=== PATIENT | female | born 1990 ===

== ENCOUNTER 2021-03-04 22:51 | Emergency (ER) | payer MEDICAID, SELFPAY ==
[2021-03-04 23:40] VITALS: BP 129/75; PULSE 67; RESP 18; TEMP 36.2; O2SAT 98; BMI 36.2
[2021-03-05 00:28] LABS: Basophils Absolute Auto 0.1 X10*3/uL (0.0-0.2); Basophils Percent Auto 0.9 % (0-2); Eosinophils Percent Auto 0.1 % (0-4); Hematocrit 38.9 % (37-47); Hemoglobin 13.4 g/dl (12.0-16.0); Imm Gran Abs Auto 0.01 X10*3/uL (0.00-0.03); Imm Gran Pct Auto 0.1 % (0.0-0.4); Lymphocytes Absolute Auto 2.8 X10*3/uL (1.2-4.9); Lymphocytes Percent Auto 29.8 % (20-40); MANUAL DIFF FLAG NO; Mean Corpuscular HGB Conc 34.4 g/dl (31.0-35.0); Mean Corpuscular Hemoglobin 28.1 pg (27.0-33.0); Mean Corpuscular Volume 81.6 fL (80-98); Mean Platelet Volume 10.5 fL (9.4-12.3); Monocytes Absolute Auto 0.8 X10*3/uL (0.1-1.2); Monocytes Percent Auto 8.7 % (2-11); Neutrophils Absolute Auto 5.7 X10*3/uL (2.0-8.3); Neutrophils Percent Auto 60.4 % (45-73); Platelet Count 361 X10*3/uL (160-400); Red Blood Count 4.77 X10*6/uL (4.20-5.50); Red Cell Distribution Width 14.1 % (11.0-16.0); White Blood Count 9.4 X10*3/uL (4.8-10.8)
[2021-03-05 00:29] LABS: Glucose Urine UA NEG (NEG); Leukocyte Esterase Urine TRACE (NEG); Nitrite Urine NEG (NEG); Specific Gravity - Urine >= 1.030 (1.005-1.025); UACC Culture Trigger YES; Urine Blood TRACE (NEG); Urine Ketones >=80 MG/DL (NEG); Urine Protein 1+ MG/DL (NEG-TRACE)
[2021-03-05 00:31] LABS: Appearance Urine CLOUDY; Color Urine DARK YELLOW; UPreg QC Valid YES; Urine Pregnancy NEGATIVE (NEGATIVE)
[2021-03-05 00:38] LABS: Bacteria Urine 1+ /LPF; Mucus Urine TRACE /LPF; Squamous Epithelial Cell Urine 3+ /LPF
[2021-03-05 00:49] LABS: Anion Gap 16 (12-20); Blood Urea Nitrogen 12 mg/dL (9-16); Calcium 9.5 mg/dL (8.4-10.2); Carbon Dioxide 21 mmol/L (22-29); Chloride 106 mmol/L (96-108); Creatinine Clr Calc Pharmacy 121.5; Estimated Glomerular Filt Rate > 60; Glucose Random 86 mg/dL (60-115); Potassium 3.9 mmol/L (3.3-5.1); Sodium 139 mmol/L (135-145)
--- NOTE | 2021-03-05 02:03 | ED.HA ---
HPI - Headache General Chief Complaint: Headache Stated Complaint: Head pressure Time Seen by Provider: 03/05/21 02:02 Source: patient Mode of arrival: ambulatory History of Present Illness HPI Narrative: 30-year-old female with history of pseudotumor cerebri presents with feelings of head pressure without associated speech/auditory changes but does state that she had some very mild blurry vision that has completely resolved. Of note, patient states she no longer has any symptoms and further endorses that she is supposed to be on SCDs ovum I would that was prescribed by her neurologist through [facility], but she has sporadically been taking this medication. Related Data Previous Rx's Medication Instructions Recorded cephalexin 500 mg PO Q12H 3 Days #6 cap 03/05/21 Allergies Allergy/AdvReac Type Severity Reaction Status Date / Time aspirin Allergy Itching Verified 03/04/21 23:54 ibuprofen [From Motrin] Allergy Itching Verified 03/04/21 23:54 Review of Systems Review of Systems: Pertinent positives and negatives as stated in HPI and 10 point review of systems is otherwise negative. [facility] Past Medical History Source: nursing notes reviewed Social History Social History Patient : No Physical Exam Vital Signs: Vital Signs: Last Vital Signs Temp 97.2 F 03/04/21 23:40 Pulse 67 03/04/21 23:40 Resp 18 03/04/21 23:40 BP 129/75 03/04/21 23:40 Pulse Ox 98 03/04/21 23:40 Body Mass Index 36.2 VITAL SIGNS: Reviewed. GENERAL: Well developed, well nourished, in no acute distress. HEAD: Normocephalic/atraumatic EYES: PERRLA, EOMI intact without pain, no nystagmus EARS: Ext canals without abnormality OROPHARYNX: no oral lesions noted, posterior pharynx clear NECK: Supple, no adenopathy LUNGS: Normal breath sounds. No adventitious sounds or accessory muscle use. SpO2<98> CARDIOVASCULAR: Regular rate and rhythm without noted murmurs ABDOMEN: Soft, non-tender, non-distended with bowel sounds. SKIN: Inspection of the skin reveals no rashes NEUROLOGIC: Alert and oriented x 4. Strength and sensation to light touch were grossly intact x 4, no nystagmus, no facial droop, cranial nerves 2-12 grossly intact. Course Course Course Narrative: This is a 30-year-old female with history and clinical presentation consistent with head pressure and history of pseudotumor cerebri, but patient has had complete resolution of all of her initial presenting symptoms. She was strongly encouraged to continue with her prescribed medications for her condition and review of all investigations negative for any acute findings other than presence of UTI. Patient was informed of all results and discharged home in stable condition with instructions to follow-up with her neurologist in the next 2-3 days for re-evaluation further outpatient management. MDM - Headache Lab Data Result diagrams: 03/05/21 00:23 03/05/21 00:23 Labs: Lab Results 03/05/21 03/05/21 03/05/21 Range/Units 00:23 00:23 00:23 WBC 9.4 (4.8-10.8) X10*3/uL RBC 4.77 (4.20-5.50) X10*6/uL Hgb 13.4 (12.0-16.0) g/dl Hct 38.9 (37-47) % MCV 81.6 (80-98) fL MCH 28.1 (27.0-33.0) pg MCHC 34.4 (31.0-35.0) g/dl RDW 14.1 (11.0-16.0) % Plt Count 361 (160-400) X10*3/uL MPV 10.5 (9.4-12.3) fL Immature Gran % (Auto) 0.1 (0.0-0.4) % Neut % (Auto) 60.4 (45-73) % Lymph % (Auto) 29.8 (20-40) % [place] % (Auto) 8.7 (2-11) % Eos % (Auto) 0.1 (0-4) % Baso % (Auto) 0.9 (0-2) % Lymph # (Auto) 2.8 (1.2-4.9) X10*3/uL [place] # (Auto) 0.8 (0.1-1.2) X10*3/uL Eos # (Auto) 0.0 (0.0-0.4) X10*3/uL Baso # (Auto) 0.1 (0.0-0.2) X10*3/uL Abs Immat Gran (auto) 0.01 (0.00-0.03) X10*3/uL Absolute Neuts (auto) 5.7 (2.0-8.3) X10*3/uL Absolute Nucleated RBC 0.000 (0.0-0.012) X10*3/uL Nucleated RBC % (auto) 0.0 (0.0-0.2) /100WBC Sodium 139 (135-145) mmol/L Potassium 3.9 (3.3-5.1) mmol/L Chloride 106 (96-108) mmol/L Carbon Dioxide 21 L (22-29) mmol/L Anion Gap 16 (12-20) BUN 12 (9-16) mg/dL Creatinine 0.76 (0.5-1.4) mg/dL Estim Creat Clear Calc 121.5 Estimated GFR > 60 Random Glucose 86 (60-115) mg/dL Calcium 9.5 (8.4-10.2) mg/dL Urine Color DARK YELLOW Urine Appearance CLOUDY Urine pH 6.0 (5.0-8.0) Ur Specific Carroll >= 1.030 H (1.005-1.025) Urine Protein 1+ H (NEG-TRACE) MG/DL Urine Glucose (UA) NEG (NEG) MG/DL Urine Ketones >=80 (NEG) MG/DL Urine Blood TRACE (NEG) Urine Nitrite NEG (NEG) Ur Leukocyte Esterase TRACE H (NEG) Urine RBC 1-4 (0) /HPF Urine WBC 5-9 H (0-4) /HPF Ur Squamous Epith Cells 3+ /LPF Urine Bacteria 1+ /LPF Urine Mucus TRACE /LPF Urine Test (NEGATIVE) 03/05/21 Range/Units 00:23 WBC (4.8-10.8) X10*3/uL RBC (4.20-5.50) X10*6/uL Hgb (12.0-16.0) g/dl Hct (37-47) % MCV (80-98) fL MCH (27.0-33.0) pg MCHC (31.0-35.0) g/dl RDW (11.0-16.0) % Plt Count (160-400) X10*3/uL MPV (9.4-12.3) fL Immature Gran % (Auto) (0.0-0.4) % Neut % (Auto) (45-73) % Lymph % (Auto) (20-40) % [place] % (Auto) (2-11) % Eos % (Auto) (0-4) % Baso % (Auto) (0-2) % Lymph # (Auto) (1.2-4.9) X10*3/uL [place] # (Auto) (0.1-1.2) X10*3/uL Eos # (Auto) (0.0-0.4) X10*3/uL Baso # (Auto) (0.0-0.2) X10*3/uL Abs Immat Gran (auto) (0.00-0.03) X10*3/uL Absolute Neuts (auto) (2.0-8.3) X10*3/uL Absolute Nucleated RBC (0.0-0.012) X10*3/uL Nucleated RBC % (auto) (0.0-0.2) /100WBC Sodium (135-145) mmol/L Potassium (3.3-5.1) mmol/L Chloride (96-108) mmol/L Carbon Dioxide (22-29) mmol/L Anion Gap (12-20) BUN (9-16) mg/dL Creatinine (0.5-1.4) mg/dL Estim Creat Clear Calc Estimated GFR Random Glucose (60-115) mg/dL Calcium (8.4-10.2) mg/dL Urine Color Urine Appearance Urine pH (5.0-8.0) Ur Specific Carroll (1.005-1.025) Urine Protein (NEG-TRACE) MG/DL Urine Glucose (UA) (NEG) MG/DL Urine Ketones (NEG) MG/DL Urine Blood (NEG) Urine Nitrite (NEG) Ur Leukocyte Esterase (NEG) Urine RBC (0) /HPF Urine WBC (0-4) /HPF Ur Squamous Epith Cells /LPF Urine Bacteria /LPF Urine Mucus /LPF Urine Test NEGATIVE (NEGATIVE) Discharge Plan Discharge Clinical Impression: Headache Patient Disposition: Home, Self-Care Instructions: General Headache (ED) Additional Instructions: 1. Resume all home medications as prescribed. 2. Increase fluid hydration especially with water. 3. Recommend using [id number] Tylenol as needed for additional headache control, but optimal option is to use your prescribed medication for your underlying medical condition. 4. Please follow-up with your neurologist in the next 2-3 days for re-evaluation and further outpatient management. Prescriptions: New cephalexin 500 mg capsule 500 mg PO Q12H 3 Days Qty: 6 RF: 0 Referrals: Physician,Nonstaff [Primary Care Provider] - 2 days
[2021-03-05] MEDS: cephALEXin 500 MG CAPSULE PO (02:19)
== END 2021-03-05 02:24 | disposition home or self-care (01) ==
LOC: HO.ED 03-05 02:17
PROVIDERS: Emergency Provider Student in an Organized Health Care Education/Training Program
DX: R51.9 Headache, unspecified (principal); Z86.69 Personal history of other diseases of the nervous system and sense organs
CPT/HCPCS: 36415; 80048; 81001; 81003; 81025; 85025; 87086; 99283

== ENCOUNTER 2021-09-02 14:36 | Outpatient (REF) | payer MEDICAID, SELFPAY ==
[2021-09-03 14:22] LABS: BV Int Neg Control Negative (Negative); BV Int Pos Control Positive (Positive)
[2021-09-03 14:40] LABS: CT PCR NOT DETECTED (Not Detect.); NG PCR NOT DETECTED (Not Detect.)
== END 2021-09-02 14:37 | disposition home or self-care (01) ==
LOC: HO.LAB 14:36
PROVIDERS: Visit Provider Advanced Practice Midwife
DX: Z01.419 Encounter for gynecological examination (general) (routine) without abnormal findings (principal); F12.90 Cannabis use, unspecified, uncomplicated; Z20.2 Contact with and (suspected) exposure to infections with a predominantly sexual mode of transmission; Z32.02 Encounter for pregnancy test, result negative
CPT/HCPCS: 81025; 87480; 87491; 87510; 87591; 87660; 99202

== ENCOUNTER 2022-01-02 09:30 | Emergency (ER) | payer OTHER, MEDICAID, SELFPAY ==
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
[2022-01-02 08:55] VITALS: BP 122/80; PULSE 62; O2SAT 99
[2022-01-02 09:01] VITALS: BP 118/91; PULSE 54; RESP 19; TEMP 36.6; O2SAT 98; BMI 32.5
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
[2022-01-02] MEDS: Acetaminophen 325 MG TABLET 975 MG PO (12:24)
[2022-01-02] MEDS: 0.9 % Sodium Chloride 1,000 ML 999 ML IVCONT (12:24)
[2022-01-02 12:28] LABS: MANUAL DIFF FLAG NO
[2022-01-02 12:29] LABS: Basophils Absolute Auto 0.1 X10*3/uL (0.0-0.2); Eosinophils Percent Auto 0.4 % (0-4); Hematocrit 41.9 % (37.0-47.0); Hemoglobin 14.2 g/dl (12.0-16.0); Imm Gran Abs Auto 0.01 X10*3/uL (0.00-0.03); Imm Gran Pct Auto 0.1 % (0.0-0.4); Lymphocytes Absolute Auto 3.1 X10*3/uL (1.2-4.9); Lymphocytes Percent Auto 40.9 % (20-40); Mean Corpuscular HGB Conc 33.9 g/dl (31.0-35.0); Mean Corpuscular Hemoglobin 29.5 pg (27.0-33.0); Mean Corpuscular Volume 86.9 fL (80.0-98.0); Mean Platelet Volume 10.2 fL (9.4-12.3); Monocytes Absolute Auto 0.5 X10*3/uL (0.1-1.2); Neutrophils Absolute Auto 3.9 x10*3/uL (2.0-8.3); Neutrophils Percent Auto 50.6 % (45-73); Platelet Count 272 X10*3/uL (160-400); Red Blood Count 4.82 X10*6/uL (4.20-5.50); Red Cell Distribution Width 13.6 % (11.0-16.0); White Blood Count 7.7 X10*3/uL (4.8-10.8)
[2022-01-02 12:51] LABS: Alanine Aminotransferase 15 U/L (0-31); Albumin Level 4.3 g/dL (3.5-5.0); Alkaline Phosphatase 69 U/L (39-117); Anion Gap 12 (12-20); Aspartate Amino Transferase 17 U/L (5-31); Bilirubin Total 0.8 mg/dL (0.0-1.0); Blood Urea Nitrogen 12 mg/dL (9-16); Calcium 9.7 mg/dL (8.4-10.2); Carbon Dioxide 26 mmol/L (22-29); Chloride 104 mmol/L (96-108); Estimated Glomerular Filt Rate > 60; Glucose Random 90 mg/dL (60-115); Magnesium 1.9 mg/dL (1.6-2.6); Potassium 4.2 mmol/L (3.3-5.1); Sodium 138 mmol/L (135-145); Total Protein 7.1 g/dL (6.5-8.0)
[2022-01-02 13:38] LABS: HCG Quantitative < 2 mIU/mL
[2022-01-02] MEDS: iohexoL 350 MG/ML 100 ML INFUS..BTL IV (13:51)
[2022-01-02 14:45] VITALS: BP 127/68; PULSE 76; RESP 17; O2SAT 98
[2022-01-02 14:55] LABS: INTERNATIONAL NORM RATIO 1.2 (0.9-1.1); Prothrombin Time 13.7 SEC (9.9-13.0)
== END 2022-01-02 14:46 | disposition home or self-care (01) ==
PROVIDERS: Physician Assistant Medical; Emergency Provider Emergency Medicine
DX: S39.012A Strain of muscle, fascia and tendon of lower back, initial encounter (principal); S39.011A Strain of muscle, fascia and tendon of abdomen, initial encounter; S29.011A Strain of muscle and tendon of front wall of thorax, initial encounter; S30.1XXA Contusion of abdominal wall, initial encounter; V89.2XXA Person injured in unspecified motor-vehicle accident, traffic, initial encounter; Y93.9 Activity, unspecified; Y92.410 Unspecified street and highway as the place of occurrence of the external cause; Y99.9 Unspecified external cause status
CPT/HCPCS: 36415; 70450; 71260; 72125; 74177; 80053; 83735; 84702; 85025; 85610; 96360; 99283; 99291; Q9967

== ENCOUNTER 2023-05-01 09:20 | Emergency (ER) | payer MEDICAID, SELFPAY ==
[2023-05-01 09:37] VITALS: BP 119/64; PULSE 66; RESP 18; TEMP 36.7; O2SAT 99; BMI 39.5
--- NOTE | 2023-05-01 14:35 | ED.EXTPRO ---
HPI - Extremity Problem General Chief complaint: Extremity Problem Stated complaint: both legs in pain Time Seen by Provider: 05/01/23 13:46 Source: patient Mode of arrival: ambulatory Limitations: no limitations History of Present Illness HPI Narrative: 32 y o female presenting for evaluation of atraumatic b/l foot pain x3 months with recent worsening over past few days. States it is extremely painful for her to walk but is better with rest. C/o pain to the dorsal aspects of the feet b/l. States she presented to her PCP months ago for workup of this complaint and PCP obtained a foot X-ray of one foot (though unsure of which) and ordered an ultrasound although patient states she was unable to obtain ultrasound d/t clerical error. Denies numbness, tingling, overlying skin changes, edema. Also denies fever, chills, chest pain, shortness of breath, numbness, tingling. denies smoking, recent travel, hormone replacement therapy or OCPs. Related Data Previous Rx's Medication Instructions Recorded metronidazole 500 mg tablet 500 mg PO BID 7 days #14 tabs 09/06/21 acetaminophen 500 mg tablet 1,000 mg (2 x 500 mg) PO QID PRN 01/02/22 (Tylenol Extra Strength) fever or pain #14 tabs cyclobenzaprine 10 mg tablet 10 mg PO Q8H PRN Muscle spasm #14 01/02/22 tabs acetaminophen 325 mg tablet 650 mg (2 x 325 mg) PO Q6H PRN 05/01/23 (Tylenol) pain #14 tabs prednisone 20 mg tablet 40 mg (2 x 20 mg) PO DAILY 5 days 05/01/23 #10 tabs Allergies Allergy/AdvReac Type Severity Reaction Status Date / Time aspirin Allergy Itching Verified 09/02/21 14:37 ibuprofen [From Motrin] Allergy Itching Verified 09/02/21 14:37 Review of Systems Review of Systems: Constitutional : No Weight loss, No Fever, No Chills, No Fatigue, No Malaise ENT/Mouth : No sore throat, No Rhinorrhea Eyes: No Eye Pain, No Swelling, No Redness Cardiovascular : No Chest Pain, No SOB, No Dyspnea on Exertion, No Orthopnea, No Edema, No Palpitations Respiratory : No Cough, No Sputum, No Wheezing Gastrointestinal : No Nausea, No Vomiting, No Diarrhea, No Constipation, No abdominal Pain, No Hematochezia, No Melena Genitourinary : No Dysuria, No Urinary Frequency, No Hematuria Musculoskeletal : + joint pain, No Myalgias, No Joint Swelling Skin : No Skin Lesions, No rash Neuro : No Weakness, No Numbness, No Dizziness, No Headache Psych : No Anxiety/Panic, No Depression Heme/Lymph: No Bruising, No Bleeding,No Lymphadenopathy Endocrine : No Polyuria, No Polydipsia All other systems reviewed and are negative Yes all other systems are reviewed and are negative [facility] Past Medical History Medical History Pseudotumor cerebri Family History Family History Father Cancer Paternal Grandmother Breast cancer Social History Social History Alcohol intake: current Alcohol intake frequency: a few times a month Substance Use Type: Marijuana Advance Directives: No Advance Directives Information Provided: Yes Gender identity: Female Physical Exam Vital Signs: Vital Signs: Last Vital Signs Temp 98.1 F 05/01/23 09:37 Pulse 66 05/01/23 09:37 Resp 18 05/01/23 09:37 BP 119/64 05/01/23 09:37 Pulse Ox 99 05/01/23 09:37 O2 Del Method Room Air 05/01/23 09:37 BMI result Body Mass Index 39.5 Appearance: Alert.? Oriented X3.? No acute distress.? Head: Normocephalic, atraumatic, no step-offs or deformities Eyes: Pupils equal, round and reactive to light.? Neck: Normal inspection.? Neck supple.? CVS: Normal heart rate and rhythm.? Pulses normal.? Respiratory: No respiratory distress.? Breath sounds normal.? Skin: Skin warm and dry.? Normal skin color.? Normal skin turgor.? Extremities: No lower extremity edema.? No calf ttp. 5/5 strength to bilateral upper and lower extremities including the great toe b/l. Positive TTP to the dorsal aspects of the tarsals and metatarsals b/l. +Dorsalis pedis, anterior tibialis, posterior tibialis pulses b/l. Gross sensation in tact. Full AROM and PROM. Back: No midline tenderness, no C-spine tenderness, full range of motion, no CVA tenderness bilaterally Neuro: Oriented X 3.? No motor deficit.? No sensory deficit. CN 2-12 intact Course Reevaluation(s) Reevaluation #1: Patient states she cannot wait for lab results, she states she has to go get her kids. I explained to her that she would be leaving against medical advice. Understands risks of leaving against medical advice will sign out against medical advice. Educated patient on diagnosis and treatment plan, answered all question, patient verbalizes understanding. At this time patient will be discharged home, advised to return with new or worsening symptoms. Educated on worrisome signs and symptoms and when to return. Time: 15:43 Medical Decision Making Medical Decision Making [facility] Narrative: 32 y o female presents for atraumatic b/l foot pain x3 months with recent worsening over past few days. Physical exam demonstrates no lower extremity edema.? No calf ttp. 5/5 strength to bilateral upper and lower extremities including the great toe b/l. Positive TTP to the dorsal aspects of the tarsals and metatarsals b/l. +Dorsalis pedis, anterior tibialis, posterior tibialis pulses b/l. Gross sensation in tact. Full AROM and PROM. Most consistent with an inflammatory arthritis vs rheumatoid arthritis. Compartments soft, no calf tenderness, and PERC negative, not high risk for DVT. Neurovascularly intact, no acute threat to life of limb. No signs of fx or dislocaiton. Plan- labs, dimer Differential Diagnosis Differential Diagnoses: The differential diagnosis associated with the presentation includes Most consistent with an inflammatory arthritis vs rheumatoid arthritis. Compartments soft, no calf tenderness, and PERC negative, not high risk for DVT. Neurovascularly intact, no acute threat to life of limb. No signs of fx or dislocaiton. Admission/Observation Consideration of admission/observation: Escalation of care including admission/observation considered not likely Lab Data [facility] Lab Attestation statement: I reviewed the patient's lab results. Discharge Plan Discharge Clinical Impression: Bilateral foot pain, Left against medical advice Patient Disposition: Home, Self-Care Instructions: Arthralgia (ED), Against Medical Advice (ED) Additional Instructions: Take your medications as prescribed. If you were prescribed antibiotics today, it is important that you take your medication to their entirety, do not skip any doses, do not finish them early. Follow-up with your primary care provider this week. Follow-up with the orthopedic team Return to the emergency department with new or worsening symptoms. Such as fevers, chills, chest pain, shortness of breath, nausea, vomiting, dizziness, headache, vision changes, lethargy In case of emergency call 911 Prescriptions: New prednisone 20 mg tablet 40 mg PO DAILY 5 Days Qty: 10 0RF acetaminophen [Tylenol] 325 mg tablet 650 mg PO Q6H PRN (Reason: pain) Qty: 14 0RF No Action metronidazole 500 mg tablet 500 mg PO BID 7 Days Qty: 14 0RF Rx Instructions: Take with food, Avoid alcohol and vinegar products acetaminophen [Tylenol Extra Strength] 500 mg tablet 1,000 mg PO QID PRN (Reason: fever or pain) Qty: 14 0RF cyclobenzaprine 10 mg tablet 10 mg PO Q8H PRN (Reason: Muscle spasm) Qty: 14 0RF Ref[place]: [facility] [Provider Group] - 2 days Physician,Unknown J [Primary Care Provider] - 2 days Stand Alone Forms: Against Medical Advice
[2023-05-01 15:46] LABS: MANUAL DIFF FLAG NO
[2023-05-01 15:47] LABS: Basophils Absolute Auto 0.1 X10*3/uL (0.0-0.2); Basophils Percent Auto 0.9 % (0-2); Eosinophils Absolute Auto 0.1 X10*3/uL (0.0-0.4); Eosinophils Percent Auto 0.6 % (0-4); Hematocrit 40.2 % (37.0-47.0); Hemoglobin 13.9 g/dl (12.0-16.0); Imm Gran Abs Auto 0.02 X10*3/uL (0.00-0.03); Imm Gran Pct Auto 0.3 % (0.0-0.4); Lymphocytes Absolute Auto 3.3 X10*3/uL (1.2-4.9); Lymphocytes Percent Auto 43.3 % (20-40); Mean Corpuscular HGB Conc 34.6 g/dl (31.0-35.0); Mean Corpuscular Hemoglobin 28.1 pg (27.0-33.0); Mean Corpuscular Volume 81.4 fL (80.0-98.0); Mean Platelet Volume 10.2 fL (9.4-12.3); Monocytes Absolute Auto 0.6 X10*3/uL (0.1-1.2); Monocytes Percent Auto 7.9 % (2-11); Neutrophils Absolute Auto 3.6 x10*3/uL (2.0-8.3); Platelet Count 280 X10*3/uL (160-400); Red Blood Count 4.94 X10*6/uL (4.20-5.50); Red Cell Distribution Width 14.1 % (11.0-16.0); White Blood Count 7.7 X10*3/uL (4.8-10.8)
--- NOTE | 2023-05-01 15:50 | PC.NURSE ---
pt left AMA
[2023-05-01 16:08] LABS: D Dimer High Sensitivity < 150 NG/ML
== END 2023-05-01 15:50 | disposition home or self-care (01) ==
PROVIDERS: Physician Assistant; Emergency Provider Student in an Organized Health Care Education/Training Program
DX: M79.671 Pain in right foot (principal); M79.672 Pain in left foot; Z79.899 Other long term (current) drug therapy
CPT/HCPCS: 36415; 85025; 85379; 99282; 99283

== ENCOUNTER 2023-05-06 07:17 | Emergency (ER) | payer MEDICAID, SELFPAY ==
[2023-05-06 07:27] VITALS: BP 126/82; PULSE 64; RESP 16; TEMP 36.7; O2SAT 100; BMI 39.5
--- NOTE | 2023-05-06 08:45 | ED_ITS ---
HPI - Extremity Problem General Chief complaint: Extremity Problem Stated complaint: pain in both legs Time Seen by Provider: 05/06/23 07:36 Source: patient Mode of arrival: ambulatory History of Present Illness HPI Narrative: 32-year-old female who presents with 2 weeks of bilateral lower extremity discomfort, calves, ankles and feet feel tight . This is not been associated with recent travel, fevers, chills, erythema, visual swelling. Patient states that it is worse 1st thing in the morning. Patient is also being followed by a neurologist for pseudotumor cerebrii. Patient reports that her primary care doctor sent her for x-rays which were negative and states that that was 2 months ago. Related Data Previous Rx's Medication Instructions Recorded metronidazole 500 mg tablet 500 mg PO BID 7 days #14 tabs 09/06/21 acetaminophen 500 mg tablet 1,000 mg (2 x 500 mg) PO QID PRN 01/02/22 (Tylenol Extra Strength) fever or pain #14 tabs cyclobenzaprine 10 mg tablet 10 mg PO Q8H PRN Muscle spasm #14 01/02/22 tabs acetaminophen 325 mg tablet 650 mg (2 x 325 mg) PO Q6H PRN 05/01/23 (Tylenol) pain #14 tabs prednisone 20 mg tablet 40 mg (2 x 20 mg) PO DAILY 5 days 05/01/23 #10 tabs Allergies Allergy/AdvReac Type Severity Reaction Status Date / Time aspirin Allergy Itching Verified 09/02/21 14:37 ibuprofen [From Motrin] Allergy Itching Verified 09/02/21 14:37 Review of Systems Review of Systems: Pertinent positives and negatives as stated in HPI [facility] Past Medical History Source: nursing notes reviewed Medical History Pseudotumor cerebri Family History Family History Father Cancer Paternal Grandmother Breast cancer Social History Social History Alcohol intake: current Alcohol intake frequency: a few times a month Substance Use Type: Marijuana Advance Directives: No Gender identity: Female Physical Exam Vital Signs: Vital Signs: Last Vital Signs Temp 98.1 F 05/06/23 07:27 Pulse 64 09/16/23 07:27 Resp 16 05/06/23 07:27 BP 126/82 05/06/23 07:27 Pulse Ox 100 05/06/23 07:27 O2 Del Method Room Air 05/06/23 07:27 BMI result Body Mass Index 39.5 VITAL SIGNS: Reviewed. GENERAL: Well developed, well nourished, in no acute distress. HEAD: Normocephalic/atraumatic EYES: PERRLA, EOMI EARS: Ext canals without abnormality NOSE: Nares patent bilateral OROPHARYNX: no oral lesions noted, posterior pharynx clear NECK: Supple, no adenopathy LUNGS: Normal breath sounds. No adventitious sounds or accessory muscle use. SpO2<100> CARDIOVASCULAR: Regular rate and rhythm without noted murmurs ABDOMEN: Soft, non-tender, non-distended with bowel sounds. MUSCULOSKELETAL: No tenderness, deformities, or effusions noted on gross inspection. EXTREMITIES: No cyanosis, clubbing or edema. BILATERAL LOWER EXTREMITY: There is no erythema, induration, no obvious swelling to either ankles or feet, feet are warm with palpable pulses SKIN: Inspection of the skin reveals no rashes NEUROLOGIC: Alert and oriented x 4. Strength and sensation to light touch were grossly intact x 4. Medical Decision Making Medical Decision Making [facility] Narrative: This is a 32-year-old female with history and clinical presentation of chronic bilateral lower extremity leg tightness and pain while walking and has had x- rays by her primary care doctor which were negative for acute findings, this is not associated with any fevers or chills and patient is not a hiker so low clinical suspicion for any Lyme exposure, patient was evaluated on 05/01 and at that time D-dimer was negative which does not support the possibility of bilateral DVT at this time. On review of patient's chart she has had a head CT in January 02 of last year which was negative for any acute findings and at this time I do not have any clinical suspicion for exacerbation of underlying diagnosis of pseudotumor cerebri is a have been no visual changes or other focal deficits. I reviewed laboratory investigations from 05/01 and there are no acute leukocytosis or left shift, there is no anemia or thrombocytopenia. As mentioned D-dimer is undetectable. Chemistry indices were grossly within normal limits. I did discuss with the patient the possibility of venous insufficiency contributing to her pain and discomfort and recommended compression stockings as an intermediate treatment prior to follow-up with her neurologist and/or primary care provider on Monday. I did discuss that this may be also a peripheral neuropathy but she has had no loss of weakness or sensation to suggest any ascending or descending neurologic condition. Patient reports she is allergic to ibuprofen and I do recommend that patient continue with high-dose Tylenol as well as using compression stockings. Differential Diagnosis Differential Diagnoses: The differential diagnosis associated with the presentation includes Please see the discussion above Admission/Observation Consideration of admission/observation: Escalation of care including admission/o bservation considered Please see the discussion above Lab Data [facility] Lab Attestation statement: I reviewed the patient's lab results. Please see the discussion above Radiology Impression Discussion of test interpretation with radiology: I have reviewed the radiologist's reading. Radiologist Impression: Please see the discussion above External Record Review External record reviewed: Outpatient record, Prior outpatient labs and Prior outpatient radiology Discharge Plan Discharge Clinical Impression: Venous insufficiency, Peripheral neuropathy Patient Disposition: Home, Self-Care Instructions: Peripheral Neuropathy (ED), Venous Insufficiency (DC) Additional Instructions: 1. Please follow-up with your neurologist and/or your primary care provider by calling the office on Monday to set up an appointment for further investigation of your symptoms. 2. Tylenol 1000 mg, orally, every 6 hours as needed for pain control. Do not exceed 4000 mg within 24 hours. 3. I highly recommend compression stockings that extend up to the knee, the should exert at least 30mmhg for maximum affect. Return to the ER for any worsening symptoms. Prescriptions: No Action metronidazole 500 mg tablet 500 mg PO BID 7 Days Qty: 14 0RF Rx Instructions: Take with food, Avoid alcohol and vinegar products acetaminophen [Tylenol Extra Strength] 500 mg tablet 1,000 mg PO QID PRN (Reason: fever or pain) Qty: 14 0RF cyclobenzaprine 10 mg tablet 10 mg PO Q8H PRN (Reason: Muscle spasm) Qty: 14 0RF prednisone 20 mg tablet 40 mg PO DAILY 5 Days Qty: 10 0RF acetaminophen [Tylenol] 325 mg tablet 650 mg PO Q6H PRN (Reason: pain) Qty: 14 0RF
--- NOTE | 2023-05-06 09:16 | PC.NURSE ---
patient ambulated off of unit with steady equal gait
== END 2023-05-06 09:18 | disposition home or self-care (01) ==
PROVIDERS: Emergency Provider Student in an Organized Health Care Education/Training Program
DX: I87.2 Venous insufficiency (chronic) (peripheral) (principal); G62.9 Polyneuropathy, unspecified; M79.605 Pain in left leg; M79.604 Pain in right leg
CPT/HCPCS: 99283